=== PATIENT | female | born 2000 | race Caucasian/White ===

== ENCOUNTER 2019-09-22 10:56 | Emergency (ER) | payer OTHER ==
[~2019-09-22] VITALS: Ht 160 cm; Wt 62.3 kg
[2019-09-22] MEDS ORDERED: OTC PRENATAL (11:07)
[2019-09-22] MEDS ORDERED: NS 1,000 ML IV ONE (12:00)
--- NOTE | 2019-09-22 12:38 | REP ---
EMERGENCY FIRST TRIMESTER OBSTETRIC SONOGRAPHY: HISTORY: Pelvic pain. Vaginal spotting. 7 weeks 1 day by dates. FINDINGS: Transabdominal scanning is performed. A living single intrauterine gestation is confirmed. The crown-rump length of the embryonic pole is 17 mm. This corresponds with a gestational age estimate of 8 weeks 1 day. heart rate is recorded at 152 beats per minute. No subchorionic hemorrhage is seen. No extrauterine abnormalities observed. IMPRESSION: Viable single intrauterine gestation at 8 weeks 1 day by today's crown-rump length. WHITLEY by sonography May 02, 2020. No complication is identified. Electronically Signed by Thomas Capellan MD 09/22/2019 01:08 P
[2019-09-22 12:46] LABS: BASO # 0.1 10^3/uL (0.0-0.2); BASO % 0.7 % (0.0-1.0); EOS # 0.1 10^3/uL (0.0-0.5); EOS % 1.4 % (0.0-3.0); HEMATOCRIT 38.8 % (36.0-47.0); HEMOGLOBIN 13.2 g/dl (12.0-15.5); LYMPH # 1.8 10^3/uL (1.5-5.0); MEAN CORPUSCULAR HEMOGLOBIN 31.3 pg (27.0-33.0); MEAN CORPUSCULAR VOLUME 91.9 fl (80.0-96.0); MONO # 0.7 10^3/uL (0.0-0.8); MONO % 10.5 % (0.0-5.0); NEUTROPHILS # 4.2 10^3/uL (1.5-8.5); NEUTROPHILS % 60.8 % (36.0-66.0); PLATELET COUNT, AUTOMATED 248 10^3/uL (150-450); RED BLOOD COUNT 4.22 10^6/uL (4.00-5.40)
[2019-09-22 13:26] LABS: BLOOD UREA NITROGEN 6 MG/DL (7-18); CALCIUM LEVEL 8.8 MG/DL (8.5-10.1); CARBON DIOXIDE LEVEL 25 MEQ/L (21-32); CHLORIDE LEVEL 107 MEQ/L (98-107); CREATININE FOR GFR 0.55 MG/DL (0.55-1.30); GLOMERULAR FILTRATION RATE > 60.0 (>60); GLUCOSE, FASTING 80 MG/DL (70-100); HCG, SERUM QUANTITATIVE 81215 MIU/ML; POTASSIUM SERUM 3.8 MEQ/L (3.5-5.1); SODIUM LEVEL 137 MEQ/L (136-145)
[2019-09-22 13:28] LABS: APPEARANCE, URINE CLEAR (CLEAR); BACTERIA, URINE AUTO 1+ (NEGATIVE); BILIRUBIN, URINE AUTO NEGATIVE (NEGATIVE); BLOOD, URINE BLOOD NEGATIVE (NEGATIVE); COLOR, URINE YELLOW (YELLOW); GLUCOSE, URINE (UA) AUTO NEGATIVE (NEGATIVE); KETONE, URINE AUTO TRACE mg/dL (NEGATIVE); LEUKOCYTE ESTERASE, URINE AUTO NEGATIVE (NEGATIVE); MUCUS, URINE SMALL (NEGATIVE); NITRITE, URINE AUTO NEGATIVE (NEGATIVE); PROTEIN, URINE AUTO NEGATIVE (NEGATIVE); RBC, URINE AUTO 0 /HPF (0-3); SPECIFIC GRAVITY URINE AUTO 1.008 (1.002-1.035); SQUAMOUS EPITHELIAL CELL UR AU 1 /HPF (0-6); UROBILINOGEN, URINE AUTO 0.2 mg/dL (0.0-2.0); WBC, URINE AUTO 1 /HPF (0-3)
[2019-09-22] MEDS ORDERED: COLA100C5 PO (14:10)
[2019-09-22] MEDS ORDERED: PYRI25TA2 PO (14:10)
[2019-09-22] MEDS ORDERED: UNIS25TA3 PO (14:10)
[2019-09-22] MEDS ORDERED: MIRA3350 PO (14:10)
[2019-09-22 14:21] VITALS: BP 110/59
== END 2019-09-22 14:23 | disposition home or self-care (01) ==
LOC: M ED 10:56
DX: O99.611 Diseases of the digestive system complicating pregnancy, first trimester (principal); O21.9 Vomiting of pregnancy, unspecified; Z3A.08 8 weeks gestation of pregnancy; Z79.899 Other long term (current) drug therapy; Z88.0 Allergy status to penicillin

== ENCOUNTER 2020-04-10 14:22 | Outpatient (CLI) | payer OTHER ==
[~2020-04-10] VITALS: Ht 160 cm; Wt 65.6 kg
[~2020-04-10 14:22] MED LIST: COLA100C5 PO; MIRA3350 PO; OTC PRENATAL; PYRI25TA2 PO; UNIS25TA3 PO
[2020-04-10 14:49] VITALS: BP 106/71
--- NOTE | 2020-04-10 15:45 | IPNPDOC ---
Text Note Date of Service The patient was seen on 04/10/20. NOTE S: 20yo at 36.2wks by redating 13wk US. States she's been having "fluid" since 28wks. Was evaluated at 32wks and treated for yeast. Since then it has become more clear so she decided to come in today. Irregular ctx. No VB. No headaches or visual changes. O: VSS WNL ABD NT, gravid LE no edema, NT SSE: closed, no pooling, normal discharge, no ferning, negative nitrazine FHT: Cat 1, 140s, reactive, no decels, no ctx A/P: Fetus reassuring. No evidence of SROM. D/w normal 3rd trimester discharge vs SROM and labor precautions. Discussed kick counts. Patient has f/u appt on 04/20/2020. VS,Fishbone, I+O VS, Fishbone, I+O Vital Signs Date Time Temp Pulse Resp B/P (MAP) Pulse Ox O2 Delivery O2 Flow Rate FiO2 04/10/20 14:49 98.2 95 18 106/71 (83) Es Flores MD Apr 10, 2020 15:45
== END 2020-04-10 15:45 | disposition home or self-care (01) ==
LOC: M LDO 14:22
PROVIDERS: ATTEND Obstetrics & Gynecology
DX: O26.893 Other specified pregnancy related conditions, third trimester (principal); Z3A.36 36 weeks gestation of pregnancy
CPT/HCPCS: 59025; G0378; G0463

== ENCOUNTER → 2020-04-14 | Outpatient (CLI) | payer OTHER ==
--- NOTE | 2020-04-22 09:20 | REP ---
LIMITED OBSTETRICAL ULTRASOUND CLINICAL: Growth discrepancy TECHNIQUE: Transabdominal obstetrical ultrasound with color Doppler evaluation. FINDINGS: A single live advanced gestation in cephalic presentation. motion identified by technologist. Placenta is noted left lateral/posterior and grade 2 without placenta previa or abruption. Amniotic fluid volume is normal. Cervix appears closed. Gestational age by LMP is 36 weeks 6 days with estimated date of delivery of 05/06/20. heart rate is 143 beats per minute. Amniotic fluid volume is 8.5 cm (7.5-24.5). Umbilical artery S/D ratio is 2.49. Biophysical profile score is 8/8. IMPRESSION: 1. Single live advanced gestation in cephalic presentation. 2. Amniotic fluid volume is low limits of normal range. MTDD
== END ==
LOC: M RAD 12:31
PROVIDERS: ATTEND Nurse Practitioner Women's Health
DX: Z34.83 Encounter for supervision of other normal pregnancy, third trimester (principal); Z3A.36 36 weeks gestation of pregnancy

== ENCOUNTER → 2020-04-21 | Outpatient (CLI) | payer OTHER ==
--- NOTE | 2020-04-28 13:11 | REP ---
OBSTETRIC SONOGRAPHY HISTORY: 36+ weeks size versus dates and amniotic fluid index (ERLINDA). Small for gestational age. Limited study. FINDINGS: Scanning demonstrates a living single intrauterine gestation in a cephalic lie. motion is observed and heart rate is recorded at 122 beats per minute. A posterior grade 2 placenta is seen without evidence of previa. ERLINDA is normal at 9.5 cm. Amniotic fluid is subjectively normal. Closed cervical length is 3.1 cm viewed transabdominally. S/D ratio in the umbilical artery by Doppler is normal at 2.42. MTDD
== END ==
LOC: M RAD 13:15
PROVIDERS: ATTEND Nurse Practitioner Women's Health
DX: O36.5930 Maternal care for other known or suspected poor fetal growth, third trimester, not applicable or unspecified (principal); Z3A.36 36 weeks gestation of pregnancy

== ENCOUNTER 2020-04-22 19:09 | Inpatient (IN) | payer OTHER ==
[~2020-04-22] VITALS: Ht 160 cm; Wt 66.0 kg
[2020-04-22 19:23] VITALS: BP 123/71
--- NOTE | 2020-04-22 20:06 | HPEPDOC ---
Obstetrical History & Physical General Date of Admission Apr 22, 2020 at 19:09 History of Present Illness 20yo at 38+0 by 13wk US presents for IOL for IUGR (<10%ile on [id number] with last dopplers on 30SEP SD 2.44 RI 0.59). She denied VB, LOF, decreased FM, contractions. She denied n/v/d, cp, sob, christian, visual changes, abd pain, f/c, vaginal dc, urinary sx. APC 1. IUGR (<10%ile on [id number] with last dopplers on 30SEP SD 2.44 RI 0.59) 2. pap [id number] LSIL 3. allergy to penicillins 4. 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 WTE) Family History Significant Family History: No pertinent family hx Social History Marital Status: Family situation: Spouse/partner home Psychosocial History: Depression * Smoker: non-smoker Alcohol: Denies Drugs: denies Imunizations Tdap status: current Allergies Coded Allergies: Penicillins (Verified Allergy, Unknown, 09/22/19) Medications Miscellaneous Medications [Otc ] Physical Examination Physical Examination GENERAL: Alert and oriented times three. BREAST: . ABDOMEN: Gravid and non-tender to touch. FETUS: Is vertex (VTX) by sterile vaginal examination (SVE), fetus is vertex (VTX) by Danie. HEART RATE: Regular rate and rhythm. LUNGS: Clear to auscultation (CTA). EXTREMITIES: No edema. No clonus. Deep tendon reflexes (DTRs) + . Pertinent Laboratoy Data Blood Type: O+ RBC Antibody Screen: Negative HIV: Negative Hepatitis B: Negative Rapid Plasma Reagin: Nonreactive Rubella: Immune Varicella: Immune Chlamydia/Gonorrhea: Negative Group B Streptococcus: Negative Quad Screen Test: Negative Cystic Fibrosis: Negative Glucose Tolerance Test: 94 Anatomy Ultrasound Placenta Location: Anterior Normal Anatomy: Yes Placenta Previa: No Steroid Therapy Steroid Therapy: No Assessment Heart Rate (FHR): 130 Variability: Moderate Accelerations: Positive Decelerations: None Tocometer Contractions: Yes Frequency: irregular Multi-drug resistant Organism: No history of MDRO Assessment/Plan Assessment 20yo at 38+0 by 13wk US presents for IOL for IUGR (<10%ile on [id number] wi th last dopplers on 30SEP SD 2.44 RI 0.59). Normal VS. CAT I tracing, reactive. APC 1. IUGR (<10%ile on [id number] with last dopplers on 30SEP SD 2.44 RI 0.59) 2. pap [id number] LSIL 3. allergy to penicillins 4. hernia surgery as (pfannenstiel incision) Rh pos, GBS neg, placenta anterior, EFW 3000 SVE 1/T/H, DLFB placed Plan Admit and orient. 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 Diet: clears Group B Streptococcus (GBS) [negative]. Labs and intravenous (IV) per unit protocol. Counseled on Pitocin and induction of labor (IOL). Anticipate [normal spontaneous delivery ()]. C-S as appropriate. KRISTIN TREJO DO Apr 22, 2020 20:06
--- NOTE | 2020-04-22 22:08 | IPNPDOC ---
Obstetrical Progress Note Date of Service Apr 22, 2020 Subjective Strip note. Objective Vital Signs Date Time Temp Pulse Resp B/P (MAP) Pulse Ox O2 Delivery O2 Flow Rate FiO2 04/22/20 19:23 97.3 89 16 123/71 (88) Assessment Heart Rate (FHR): 140 Variability: Moderate Accelerations: Positive Decelerations: None Heart Rate Tracing: Category I Tocometer Contractions: Yes Frequency: irregular Assessment and Plan Status: Reassuring Additional Comments DLFB was placed on admission. Patient has significant anxiety about pain. Discussed pain control to include conservative measures like bath/shower, medical management, and epidural. Patient requested to take a bath, educated on continous monitoring for IUGR given possible intolerance of labor. No FHR abnormalities after extended monitoring after DLFB placement. Will pause monitoring for a bath and hold any augmentation with pitocin/cytotec to DLFB and resume continous monitoring after bath. Will consider augmentation with pitocin/cytotec after monitoring of contractions after bath. Reassuring CAT I tracing, normal VS. Anxiety has subsided after placement of DLFB. KRISTIN TREJO DO Apr 22, 2020 22:08
[2020-04-22] MEDS ORDERED: BUTORPHANOL 2 MG/ML INJ (J0595) IV ONE (22:15)
[2020-04-22] MEDS ORDERED: PROMETHAZINE INJ 25 MG/ML VIAL (J2550) IV ONE (22:15)
[2020-04-22 23:08] LABS: HEMATOCRIT 36.1 % (36.0-47.0); HEMOGLOBIN 11.8 g/dl (12.0-15.5); MEAN CORPUSCULAR HEMOGLOBIN 29.1 pg (27.0-33.0); MEAN CORPUSCULAR HGB CONC 32.7 g/dl (32.0-36.5); MEAN CORPUSCULAR VOLUME 89.1 fl (80.0-96.0); PLATELET COUNT, AUTOMATED 256 10^3/uL (150-450); RED BLOOD COUNT 4.05 10^6/uL (4.00-5.40); WHITE BLOOD COUNT 11.9 10^3/uL (4.0-10.0)
[2020-04-22 23:09] VITALS: BP 118/74
[2020-04-23] VITALS (43 sets, daily range): BP systolic 90–130; BP diastolic 50–84
[2020-04-23] MEDS ORDERED: BUTORPHANOL 2 MG/ML INJ (J0595) IV ONE (06:15)
[2020-04-23] MEDS ORDERED: PROMETHAZINE INJ 25 MG/ML VIAL (J2550) IV ONE (06:15)
[2020-04-23] MEDS: LR 1,000 ML IV SCH ×2 (07:00→17:12)
[2020-04-23] MEDS ORDERED: miSOPROStol 50 MCG 1/2 TAB (S0191) PO SCH (11:00)
--- NOTE | 2020-04-23 11:14 | IPNPDOC ---
Obstetrical Progress Note Date of Service Apr 23, 2020 Subjective Pt resting side lying with occasional sensation of contractions Objective Vital Signs Date Time Temp Pulse Resp B/P (MAP) Pulse Ox O2 Delivery O2 Flow Rate FiO2 04/23/20 07:43 98.2 76 127/78 (94) 04/22/20 23:05 16 Room Air Assessment Heart Rate (FHR): 120 Variability: Moderate Accelerations: Positive Decelerations: None Heart Rate Tracing: Category I Tocometer Contractions: Yes Frequency: irregular Strength: palpated as mild Assessment and Plan Age: 20 : 1 Status: Reassuring Group B Streptococcus: Negative Anticipate: Vaginal Delivery Additional Comments cervical catheter remains in place P:continue lr @125ml/hr, may eat light meals during cerival ripening, continuous efm x2, 50mcg sublingual cytotec for cervical ripening, monitor for change in or maternal status, encourage maternal movement and rest periods, consider removal of cervical catheter and change in induction methods as appropriate CHRISTIANO NUNES CNM Apr 23, 2020 11:14
--- NOTE | 2020-04-23 16:27 | IPNPDOC ---
Obstetrical Progress Note Date of Service Apr 23, 2020 Subjective c/o pressure and cramping Objective Vital Signs Date Time Temp Pulse Resp B/P (MAP) Pulse Ox O2 Delivery O2 Flow Rate FiO2 04/23/20 07:43 98.2 76 127/78 (94) 04/22/20 23:05 16 Room Air Assessment Heart Rate (FHR): 140 Variability: Moderate Accelerations: Positive Decelerations: None Heart Rate Tracing: Category I Tocometer Contractions: Yes Frequency: every 2-5 min. Duration: greater than 60 seconds Strength: palpated as moderate Sterile Vaginal Examination Dilation: 4 cm Effacement (%): 70% Station: -3 Cervical Consistency: Soft Cervical Position: Posterior Postion/Presentation: Cephalic presentation Assessment and Plan Age: 20 : 1 Term: 0 Pre-term: 0 Abortions: 0 Livin Weeks & Days 38+1 Status: Reassuring Group B Streptococcus: Negative Anticipate: Vaginal Delivery Additional Comments Vaginal balloon emptied in Bard catheter. The cervical bulb was gently removed from the vaginal vault. Reviewed patient consent for pitocin augmentation. continue lr@125 ml/hr, continuous efm x2, initiate pitocin augmentation and titrate per protocol, monitor for change in or maternal status, encourage maternal movement, evaluate for change as indicated, anticipate vaginal delivery. CHRISTIANO NUNES CNM Apr 23, 2020 16:27
[2020-04-23] MEDS ORDERED: OXYTOCIN DRIP 30 UNITS in IV 1 EA IV SCH (16:30)
[2020-04-23] MEDS ORDERED: FENTANYL 2MCG/ML ROPIVACAINE 0.2% IN 0.9% NACL 100ML IVBAG As Ordered ONE (20:05)
[2020-04-23] MEDS ORDERED: EPIDURAL/PCA KEYS XX PRN (20:10)
[2020-04-23] MEDS ORDERED: FENTANYL/ROPIVACAINE/NACL BAG 100 ML EPIDURAL SCH (20:10)
[2020-04-23] MEDS ORDERED: REFRIGERATOR IV KEYS XX PRN (20:10)
[2020-04-23] MEDS ORDERED: EPIDURAL COMMENT XX SCH (20:10)
[2020-04-23] MEDS ORDERED: diphenhydrAMINE 50MG/ML VIAL (J1200) IV PRN (20:10)
[2020-04-23] MEDS ORDERED: ePHEDrine SULFATE 25 MG/5 ML(5MG/ML) SYRINGE IV PRN (20:10)
[2020-04-23] MEDS ORDERED: NALOXONE INJ 0.4MG/1ML VIAL (J2310 PER 1MG) IV PRN (20:10)
[2020-04-23] MEDS ORDERED: ONDANSETRON 4MG/2ML VIAL IV PRN (20:10)
[2020-04-23] MEDS ORDERED: LACTATED RINGER'S 1000 ML IV PRN (20:10)
[2020-04-24] VITALS (17 sets, daily range): BP systolic 90–181; BP diastolic 50–145
[2020-04-24 04:11] LABS: CORD GAS HCO3 V 21.2 MEQ/L; CORD GAS O2 SAT V 47.6 %; CORD GAS PCO2 V 43.7 mmHg; CORD GAS PH V 7.304 UNITS; CORD GAS PO2 V 20.7 mmHg; CORD GAS SBC V 19.3 MEQ/L; CORD GAS TCO2 V 22.6 MEQ/L
[2020-04-24 04:14] LABS: CORD GAS ABE A -6.3; CORD GAS HCO3 A 21.8 MEQ/L; CORD GAS O2 SAT A 20.5 %; CORD GAS PCO2 A 53.9 mmHg; CORD GAS PH A 7.224 UNITS; CORD GAS PO2 A 12.3 mmHg; CORD GAS SBC A 17.9 MEQ/L; CORD GAS TCO2 A 23.4 MEQ/L
[2020-04-24] MEDS ORDERED: DIBUCAINE 1% OINTMENT 30GM TOP PRN (04:15)
[2020-04-24] MEDS ORDERED: ACETAMINOPHEN TAB 650MG DOSE (2X325MG) PO PRN (04:15)
[2020-04-24] MEDS ORDERED: ACETAMINOPHEN 500 MG TAB PO PRN (04:15)
[2020-04-24] MEDS ORDERED: METHYLERGONOVINE MALEATE 0.2 MG TAB PO PRN (04:15)
[2020-04-24] MEDS ORDERED: OXYTOCIN DRIP 30 UNITS in IV 1 EA IV ONE (04:15)
[2020-04-24] MEDS ORDERED: OXYTOCIN INJ 10 UNITS/ML VIAL (J2590) IV ONE (04:15)
[2020-04-24] MEDS ORDERED: RHOGAM 300 MCG (1500 IU) INJ (J2790) IM SCH (04:15)
[2020-04-24] MEDS ORDERED: MEASLES,MUMPS,RUBELLA VACCINE INJ (MMR-II) (90707) SC SCH (04:15)
[2020-04-24] MEDS ORDERED: IBUPROFEN 600MG TAB PO PRN (04:15)
[2020-04-24] MEDS ORDERED: MOM 30ML SUSPENSION UDC PO PRN (04:15)
[2020-04-24] MEDS ORDERED: ANUSOL HC CREAM 30GM TOP PRN (04:15)
[2020-04-24] MEDS: PRENATAL VITAMINS CHEWABLE TABLET PO SCH (08:00)
[2020-04-24] MEDS ORDERED: LIDOCAINE 1% MDV 20ML VIAL As Ordered ONE (08:30)
[2020-04-24] MEDS ORDERED: OXYTOCIN INJ 10 UNITS/ML VIAL (J2590) As Ordered ONE (08:30)
[2020-04-24] MEDS: IBUPROFEN 800 MG TAB PO PRN (13:23)
[2020-04-24] MEDS: DOCUSATE SODIUM 100 MG CAP PO PRN (19:50)
--- NOTE | 2020-04-25 05:09 | IPNPDOC ---
Progress Note Date of Service: Apr 25, 2020 Day#: 1 Progress Note SUBJECT: Jessica is a 20-year-old 1 now Para 1 status post uncomplicated spontaneous vaginal delivery at 38+2/7 weeks. She has been ambulating, voiding spontaneously without issue and tolerating regular diet. She is pumping for and endorses some soreness with using handpump. Reports lochia is decreasing. Reports pain is well-controlled on oral pain meds. OBJECTIVE: VITAL SIGNS: Within normal limits, afebrile. Alert and oriented times three. No exaggerated respiratory effort appreciated Well-perfused Abdomen: Fundus firm at U-2. Soft, NTTP. Scant lochia on peripad Extremities without edema, no calf tenderness ASSESSMENT: Jessica is a 20-year-old 1 now Para 1 status post uncomplic ated spontaneous vaginal delivery at 38+2/7 week after IOL for IUGR. Patient doing well on day 1. Vitals within normal limits, afebrile, hemodynamically stable with no evidence of infection. PLAN: 1. Discharge to home tomorrow. 2. Continue current pain mgmt. 3. Encourage breast feeding and ambulation. 4. Encourage regular diet as tolerated 5. Routine PP visit in 6 weeks in clinic. 6. Discussed return precautions at length. VS, I&O, 24H, Fishbone Vital Signs/I&O Vital Signs Date Time Temp Pulse Resp B/P (MAP) Pulse Ox O2 Delivery O2 Flow Rate FiO2 04/24/20 17:55 98.0 70 103/63 (76) 04/24/20 06:40 18 04/22/20 23:05 Room Air I&O- Last 24 Hours up to 6 AM 04/25/20 06:00 Output Total 460 ml Balance -460 ml ANDREW TIAN DO Apr 25, 2020 05:09
[2020-04-25 06:00] VITALS: BP 103/69
[2020-04-25 07:02] LABS: HEMATOCRIT 29.6 % (36.0-47.0); HEMOGLOBIN 9.5 g/dl (12.0-15.5); MEAN CORPUSCULAR HEMOGLOBIN 29.4 pg (27.0-33.0); MEAN CORPUSCULAR HGB CONC 32.1 g/dl (32.0-36.5); MEAN CORPUSCULAR VOLUME 91.6 fl (80.0-96.0); PLATELET COUNT, AUTOMATED 200 10^3/uL (150-450); RED BLOOD COUNT 3.23 10^6/uL (4.00-5.40); WHITE BLOOD COUNT 10.9 10^3/uL (4.0-10.0)
[2020-04-25] MEDS: IBUPROFEN 800 MG TAB PO PRN ×2 (08:23→20:25)
[2020-04-25] MEDS: PRENATAL VITAMINS CHEWABLE TABLET PO SCH (08:23)
[2020-04-25] MEDS ORDERED: INFLUENZA QUADRIVALENT PF VACCINE 0.5ML SYRINGE IM ONE (09:00)
[2020-04-25 17:50] VITALS: BP 105/61
[2020-04-25] MEDS: DOCUSATE SODIUM 100 MG CAP PO PRN (20:24)
[2020-04-26 06:00] VITALS: BP 105/71
--- NOTE | 2020-04-26 06:07 | IPNPDOC ---
Progress Note Date of Service: Apr 26, 2020 Day#: 2 Progress Note SUBJECT: Jessica is a 20-year-old 1 now Para 1 status post uncomplicated spontaneous vaginal delivery at 38+2/7 weeks. She has been ambulating, voiding spontaneously without issue and tolerating regular diet. She is pumping for and working on latching. Reports lochia is decreasing. Reports pain is well-controlled on oral pain meds. OBJECTIVE: VITAL SIGNS: Within normal limits, afebrile. Alert and oriented times three. No exaggerated respiratory effort appreciated Well-perfused Abdomen: Fundus firm at U-2. Soft, NTTP. Scant lochia on peripad Extremities without edema, no calf tenderness ASSESSMENT: Jessica is a 20-year-old 1 now Para 1 status post uncomplicated spontaneous vaginal delivery at 38+2/7 week after IOL for IUGR. Patient doing well on day 2. Vitals within normal limits, afebrile, hemodynamically stable with no evidence of infection. PLAN: 1. Discharge to home today. 2. Continue current pain mgmt. 3. Encourage breast feeding and ambulation. 4. Encourage regular diet as tolerated 5. Routine PP visit in 6 weeks in clinic. 6. Discussed return precautions at length. VS, I&O, 24H, Fishbone Vital Signs/I&O Vital Signs Date Time Temp Pulse Resp B/P (MAP) Pulse Ox O2 Delivery O2 Flow Rate FiO2 04/25/20 17:50 98.9 65 18 105/61 (76) 98 Room Air Laboratory Data 24H LABS Laboratory Tests 2 04/25/20 06:15: Nucleated Red Blood Cells % (auto) 0.0 CBC/BMP Laboratory Tests 04/25/20 06:15 ANDREW TIAN DO Apr 26, 2020 06:06
[2020-04-26] MEDS: PRENATAL VITAMINS CHEWABLE TABLET PO SCH (08:32)
[2020-04-26] MEDS ORDERED: INFLUENZA QUADRIVALENT PF VACCINE 0.5ML SYRINGE IM ONE (09:00)
--- NOTE | 2020-04-27 11:20 | DN ---
DATE OF DELIVERY: 04/24/2020 This lady is a 20-year-old 1, admitted for induction of labor for small for gestational age . She had I.V. meds and epidural. Delivered a live female infant, weighing 6 pounds 3 ounces (2800 grams), Apgars of 8 and 9 at one and five minutes respectively. Arterial pH 7.22, base access -6.3, venous pH 7.30, base access -5.0. Her uterus contracted well under Pitocin. She had an intact perineum. Placenta delivered spontaneously thereafter, three vessel cord, membranes and tissues intact. Anterior, posterior and lateral mack were complete and sphincter was tight. Mijares catheter draining good urine. Estimated blood loss 200 cc. Patient and baby tolerated the procedure well. [facility]
--- NOTE | 2020-04-28 14:40 | IPN ---
DATE: 04/23/2020 TIME OF SERVICE: 9:28 p.m. SUBJECTIVE: This lady is a 20 -year-old 1, para 0 at 38 and 0 who was admitted for induction of labor with a baby small for gestational age at less than the 10th percentile for weight. Her history is following up on a small for gestational age. She has LSIL on Pap. She had a hernia surgery repair as an . She also suffers from acute anxiety attacks which sometimes can be paralyzing. She was admitted for induction of labor. She is GBS negative. She was counseled regarding Mijares bulb, Pitocin induction, pain management in labor. Her initial evaluation, she was a candidate for misoprostol 50 mg by mouth every 4 hours scheduled. She also received promethazine and butorphanol. She had in place an anesthesia consult. Presently she has an epidural in place, she seems to be quite pain free at the present time, category 1 strip. PHYSICAL EXAMINATION: Vital signs at the present time 107/60, respiration 18, pulse 88, temperature 97.8. She is on 6 mU of Pitocin. Contractions are moderate in intensity. On pelvic examination vertex 50-60% effaced posterior, 4 cm, OT position. An ARM was done draining quite a little bit of fluid; it was clear. Persistent category 1 strip. ASSESSMENT AND PLAN: It was safe to proceed with increasing Pitocin to get adequate contractions. Patient appears to understand the plan of care as does her . Safe to proceed. VITO
== END 2020-04-26 13:40 | disposition home or self-care (01) | DRG 807 ==
LOC: M LDI 19:09 → M OBS 04-24 06:23
PROVIDERS: ADMIT Obstetrics & Gynecology; ATTEND Obstetrics & Gynecology
PROC: 3E0P7GC Introduction of Other Therapeutic Substance into Female Reproductive, Via Natural or Artificial Opening (ICD-10-PCS; 2020-04-22)
PROC: 10E0XZZ Delivery of Products of Conception, External Approach (ICD-10-PCS; principal; 2020-04-24)
DX: O36.5930 Maternal care for other known or suspected poor fetal growth, third trimester, not applicable or unspecified (principal); Z37.0 Single live birth; Z3A.38 38 weeks gestation of pregnancy